=== PATIENT | male | born 1995 | race Caucasian/White ===

== ENCOUNTER 2018-11-04 02:01 | Emergency (ER) | payer OTHER | END 2018-11-04 03:29 | disposition home or self-care (01) | LOC: E/R 02:01 | DX: G40.909 Epilepsy, unspecified, not intractable, without status epilepticus (principal); R40.4 Transient alteration of awareness | CPT/HCPCS: 99282; Z7502 ==

== ENCOUNTER 2019-02-28 23:09 | Emergency (ER) | payer OTHER ==
[2019-03-01] MEDS: LORAZEPAM 2 MG INJ IV (01:15)
[2019-03-01] MEDS: LEVETIRACETAM 500 MG (PMX) 100 ML IVPB (01:16)
== END 2019-03-01 02:13 | disposition home or self-care (01) ==
LOC: E/R 23:09
DX: G40.909 Epilepsy, unspecified, not intractable, without status epilepticus (principal)
CPT/HCPCS: 96374; 96375; 99284-25